=== PATIENT | female | born 1985 | race African-American/Black ===

== ENCOUNTER 2018-09-22 16:25 | Emergency (ER) | payer BC, OTHER ==
[~2018-09-22] VITALS: Ht 160 cm; Wt 55.8 kg
[2018-09-22 16:40] VITALS: BP 113/69
--- NOTE | 2018-09-22 16:52 | Emergency Room Report ---
History of Present Illness General Chief Complaint: Headache Source: Patient Present Illness HPI 33-year-old female presents to the emergency department complaining of headache that she describes as a tight band circumferential around her head that had a progressive onset a few hours ago. Patient reports that she took 800 mg ibuprofen and has had complete relief of her symptoms. Patient presents because she states that she does not regularly have headaches. Patient denies trauma or fall she denies nausea vomiting, visual changes or changes in her hearing. Patient denies neck pain or stiffness. Patient denies history of high blood pressure or taking blood thinning medications. Patient denies sudden onset. Patient denies dysuria, urinary frequency or urgency. She denies significant past medical history. Denies weakness or paresthesias. She denies . Allergies: Coded Allergies: OXYCODONE (Verified Allergy, Severe, Itching, 09/22/18) migraine Patient History Past Medical History: see triage record Past Surgical History: none Pertinent Family History: none Last Menstrual Period: 3-18 Now: No Reviewed Nursing Documentation: PMH: Agreed; PSxH: Agreed Nursing Documentation-PMH Past Medical History: No Stated History Review of Systems All Other Systems: negative except mentioned in HPI Physical Exam Vital Signs Date Time Temp Pulse Resp B/P (MAP) Pulse Ox O2 Delivery O2 Flow Rate FiO2 09/22/18 16:27 98.4 76 18 113/69 98 Room Air Sp02 EP Interpretation: reviewed, normal General Appearance: no apparent distress, alert, GCS 15, non-toxic Head: normocephalic, atraumatic Eyes: bilateral eye normal inspection, bilateral eye PERRL, bilateral eye EOMI ENT: hearing grossly normal, normal voice Neck: full range of motion, no meningismus Respiratory: lungs clear, normal breath sounds, speaking full sentences Cardiovascular #1: regular rate, rhythm Musculoskeletal: gait/station normal, normal range of motion, non-tender Neurologic: alert, oriented x3, responsive, motor strength/tone normal, sensory intact, speech normal, grossly normal Psychiatric: judgement/insight normal Skin: normal color, no rash, warm/dry, well hydrated Medical Decision Making PA Attestation Dr. Torres is my supervising Physician whom patient management has been discussed with. Diagnostic Impression: Primary Impression: Tension headache ER Course 33-year-old female presents to the emergency department complaining of headache that she describes as a tight band circumferential around her head that had a progressive onset a few hours ago. Patient reports that she took 800 mg ibuprofen and has had complete relief of her symptoms. Patient presents because she states that she does not regularly have headaches. Patient denies trauma or fall she denies nausea vomiting, visual changes or changes in her hearing. Patient denies neck pain or stiffness. Patient denies history of high blood pressure or taking blood thinning medications. Patient denies sudden onset. Patient denies dysuria, urinary frequency or urgency. She denies significant past medical history. Denies weakness or paresthesias. She denies . Ddx considered but are not limited to migraine, SAH, Pseudomotor Cerebri,, Mass lesion, Cluster MARIE, Tension MARIE, Post lumbar puncture MARIE. Vital signs: are WNL, pt. is afebrile H&PE are most consistent with tension headache- This patient does not exhibit any signs of acute distress, no focal neurological deficits the patient is nontoxic in appearance and is alert and oriented. ORDERS: - none required at this time, dx is clinical. ED INTERVENTIONS: -None required at this time DISCHARGE: At this time pt. is stable for d/c to home. Will provide printed patient care instructions, and any necessary prescriptions. Care plan and follow up instructions have been discussed with the patient prior to discharge. Last Vital Signs Date Time Temp Pulse Resp B/P (MAP) Pulse Ox O2 Delivery O2 Flow Rate FiO2 09/22/18 16:40 98.4 18 113/69 98 Room Air 09/22/18 16:27 76 Status: improved Disposition: HOME, SELF-CARE Condition: Stable Patient Instructions: Tension Headache Additional Instructions: Take medications as directed. Follow up with a Primary Care Provider in 3-5 days, even if your symptoms have resolved. --Please review list of primary care clinics, if you do not already have a primary care provider Return sooner to ED if new symptoms occur, or current symptoms become worse. - Please note that this Emergency Department Report was dictated using [employer] technology software, occasionally this can lead to erroneous entry secondary to interpretation by the dictation equipment. Jeanette Feldman Sep 22, 2018 16:52
[2018-09-22 17:25] VITALS: BP 113/69
--- NOTE | 2018-09-22 17:26 | NUR ---
ER DISCHARGE NOTE: Patient is cleared to be discharged per ERMD, pt is aox4, on room air, with stable vital signs. pt was given dc instructions, pt was able to verbalize understanding. pt is able to ambulate with steady gait. pt took all belongings.
== END 2018-09-22 17:27 | disposition home or self-care (01) ==
LOC: EMR 16:49
DX: G44.209 Tension-type headache, unspecified, not intractable (principal)
CPT/HCPCS: 99282